=== PATIENT | female | born 1980 | race Caucasian/White ===

== ENCOUNTER → 2018-07-10 | Outpatient (CLI) | payer OTHER | LOC: LAB 11:30 | PROVIDERS: ATTEND Obstetrics & Gynecology Reproductive Endocrinology | DX: Z11.3 Encounter for screening for infections with a predominantly sexual mode of transmission (principal); Z01.812 Encounter for preprocedural laboratory examination; Z13.228 Encounter for screening for other metabolic disorders | CPT/HCPCS: 36415; 82306; 86592; 86644; 86645; 86703; 86706; 86762; 86787; 86803; 86850; 86900; 86901; 87340; 87491; 87591 ==

== ENCOUNTER → 2018-07-13 | Outpatient (CLI) | payer OTHER | LOC: LAB 08:28 | PROVIDERS: ATTEND Obstetrics & Gynecology Reproductive Endocrinology | DX: Z13.29 Encounter for screening for other suspected endocrine disorder (principal) | CPT/HCPCS: 36415; 84439; 84443 ==

== ENCOUNTER → 2018-07-17 | Outpatient (CLI) | payer OTHER | LOC: LAB 08:06 | PROVIDERS: ATTEND Obstetrics & Gynecology Reproductive Endocrinology | DX: Z31.41 Encounter for fertility testing (principal); Z13.0 Encounter for screening for diseases of the blood and blood-forming organs and certain disorders involving the immune mechanism | CPT/HCPCS: 36415; 82670; 83001; 83002; 83036; 84403 ==

== ENCOUNTER → 2018-11-12 | Outpatient (CLI) | payer OTHER ==
[~2018-11-12] MED LIST: CHOL10005 PO; METF-450 PO; PREN-127 PO
[2018-11-12 12:53] LABS: PLATELET COUNT, AUTOMATED 341 K/uL (150-450)
== END ==
LOC: LAB 08:18
PROVIDERS: ATTEND Obstetrics & Gynecology
DX: Z34.01 Encounter for supervision of normal first pregnancy, first trimester (principal)
CPT/HCPCS: 36415; 81001; 85025; 86592; 86703; 86762; 86850; 86900; 86901; 87088; 87340

== ENCOUNTER → 2019-01-31 | Outpatient (CLI) | payer OTHER ==
[~2019-01-31] MED LIST changes: +DOCU-416 PO; +DOXY1TAB3 PO; +OMEP-125 PO; +ONDA4TAB9 PO
[2019-01-31 10:10] LABS: PLATELET COUNT, AUTOMATED 269 K/uL (150-450)
== END ==
LOC: LAB 08:21
PROVIDERS: ATTEND Obstetrics & Gynecology
DX: O30.049 Twin pregnancy, dichorionic/diamniotic, unspecified trimester (principal); O09.521 Supervision of elderly multigravida, first trimester
CPT/HCPCS: 36415; 82950; 85025

== ENCOUNTER → 2019-04-10 | Outpatient (CLI) | payer OTHER ==
[~2019-04-10] MED LIST changes: +ASPI-760 PO; +DIPH0.5S2 IM; -OMEP-125 PO; +OMEP-126 PO
[2019-04-10 11:23] LABS: PLATELET COUNT, AUTOMATED 232 K/uL (150-450)
== END ==
LOC: LAB 08:48
PROVIDERS: ATTEND Obstetrics & Gynecology
DX: Z34.82 Encounter for supervision of other normal pregnancy, second trimester (principal)
CPT/HCPCS: 36415; 82950; 85025